=== PATIENT | female | born 1945 | race Caucasian/White ===

== ENCOUNTER 2019-05-13 13:43 | Inpatient (IN) | payer OTHER, MEDICAID ==
[~2019-05-13] VITALS: Ht 157.5 cm; Wt 78.9 kg
[2019-05-13 16:47] VITALS: BP_SYST 142
[2019-05-13] MEDS ORDERED: QUET50TA PO (17:32)
[2019-05-13] MEDS ORDERED: PRO40 PO (17:32)
[2019-05-13] MEDS ORDERED: IBUP-2018 PO (17:32)
[2019-05-13] MEDS ORDERED: LIP10 PO (17:32)
[2019-05-13] MEDS ORDERED: MUPI1OIN4 (17:32)
[2019-05-13] MEDS ORDERED: DONE10TA44 PO (17:32)
[2019-05-13] MEDS ORDERED: MOM PO (17:32)
[2019-05-13] MEDS ORDERED: GLUC1VIA IM (17:32)
[2019-05-13] MEDS ORDERED: ALBU2.5V7 INH ×2 (17:32)
[2019-05-13] MEDS ORDERED: ACET325T53 PO (17:32)
[2019-05-13] MEDS ORDERED: BALS60OI TP (17:32)
[2019-05-13] MEDS ORDERED: HUMALOG INSULIN SUBCUT (17:32)
[2019-05-13] MEDS ORDERED: LOVI30 SQ (17:32)
[2019-05-13] MEDS ORDERED: ASCO500T20 PO (17:32)
[2019-05-13] MEDS ORDERED: LORA-258 PO (17:32)
[2019-05-13] MEDS ORDERED: ZOLP5TAB2 PO (17:32)
[2019-05-13] MEDS ORDERED: BUDE0.5A INH (17:32)
[2019-05-13] MEDS ORDERED: MAGN400T10 PO (17:32)
[2019-05-13] MEDS ORDERED: OXYB5TAB11 PO (17:32)
[2019-05-13] MEDS ORDERED: LEVAQUIN IVPB (17:32)
[2019-05-13] MEDS ORDERED: THERAGRAN PO (17:32)
[2019-05-13] MEDS ORDERED: [UNRECOGNIZED DRUG - OTHER] IV (17:32)
[2019-05-13] MEDS ORDERED: GLIP5TAB13 PO (17:32)
[2019-05-13] MEDS ORDERED: MINE113C2 TP (17:32)
[2019-05-13] MEDS ORDERED: ANT30 PO (17:32)
[2019-05-13] MEDS ORDERED: [UNRECOGNIZED DRUG - OTHER] IV (17:32)
[2019-05-13] MEDS ORDERED: DOCU-144 PO (17:32)
[2019-05-13] MEDS ORDERED: ATROVENT NEB HHN (17:32)
[2019-05-13] MEDS ORDERED: LEVAQUIN 500 MG IVPB SCH (17:45)
[2019-05-13] MEDS ORDERED: INSULIN LISPRO SLIDING SCALE 100 UNITS/ML VIAL (humaLOG) SUBCUT PRN (17:45)
[2019-05-13] MEDS ORDERED: ALBUTEROL SULFATE 0.083% 2.5 MG/3 ML VIAL.NEB INH PRN (17:45)
[2019-05-13] MEDS ORDERED: MAG-AL HYDROX/SIMETH 30 ML UDC PO PRN (17:45)
[2019-05-13] MEDS ORDERED: MILK OF MAGNESIA 30 ML UDC PO PRN (17:45)
[2019-05-13 18:02] VITALS: BP_SYST 142
[2019-05-13] MEDS ORDERED: GLUCAGON,HUMAN RECOMBINANT 1 MG VIAL IM PRN (18:45)
[2019-05-13] MEDS ORDERED: IPRATROPIUM BROM 0.5 MG/2.5 ML VIAL.NEB (ATROVENT) INH PRN (18:45)
[2019-05-13] MEDS: ALBUTEROL SULFATE 0.083% 2.5 MG/3 ML VIAL.NEB INH SCH (19:00)
[2019-05-13] MEDS: BUDESONIDE 0.5 MG/2 ML AMPUL.NEB INH SCH (19:00)
[2019-05-13 20:00] VITALS: BP_SYST 147
[2019-05-13] MEDS: D5/0.45 NS 1,000 ML IV SCH (20:00)
[2019-05-13] MEDS ORDERED: [UNRECOGNIZED DRUG - OTHER] IV SCH (21:00)
[2019-05-13] MEDS ORDERED: D5 IV SCH (21:00)
[2019-05-13] MEDS: LEVOFLOXACIN 500 MG/D5W 100 ML IV SCH (21:24)
[2019-05-13] MEDS: ATORVASTATIN 10 MG TABLET PO SCH (22:11)
[2019-05-13] MEDS: QUEtiapine FUMARATE 25 MG TABLET PO SCH (22:11)
[2019-05-13] MEDS: OXYBUTYNIN CHLORIDE 5 MG TABLET PO SCH (22:11)
[2019-05-13] MEDS: DONEPEZIL HCL 5 MG TABLET (ARICEPT) PO SCH (22:11)
[2019-05-13] MEDS: MAGNESIUM OXIDE 400 MG TABLET PO SCH (22:11)
[2019-05-13] MEDS: MINERAL OIL/PETROLATUM,WHITE 113 GM CREAM.GM. TP SCH (22:13)
[2019-05-13] MEDS: MUPIROCIN 2% TOPICAL OINTMENT 22 GM TP SCH (22:14)
[2019-05-13] MEDS: LORazepam 1 MG TABLET PO PRN (23:39)
[2019-05-14 00:40] VITALS: BP_SYST 153
[2019-05-14] MEDS: ALBUTEROL SULFATE 0.083% 2.5 MG/3 ML VIAL.NEB INH SCH ×4 (01:00→19:00)
[2019-05-14] MEDS: LORazepam 1 MG TABLET PO PRN ×2 (05:22→22:00)
[2019-05-14] MEDS: D5/0.45 NS 1,000 ML IV SCH ×2 (05:23→20:43)
[2019-05-14 06:09] LABS: HEMATOCRIT 27.1 % (36-48); HEMOGLOBIN 9.1 g/dL (12.0-16.0); MEAN CORPUSCULAR HEMOGLOBIN 27 pg (27-31); MEAN CORPUSCULAR HGB CONC 34 % (32-36); MEAN CORPUSCULAR VOLUME 79 fL (79.0-98.0); PLATELET COUNT (AUTO) 129 K/uL (130-430); RED BLOOD CELL COUNT(AUTO) 3.41 MIL/uL (4.2-6.2); RED CELL DISTRIBUTION WIDTH 19.6 % (9.0-15.0); WHITE BLOOD COUNT (AUTO) 4.7 K/uL (4.8-10.8)
[2019-05-14 06:14] LABS: ANION GAP 3 (5-15); CALCIUM 9.2 mg/dL (8.4-11.0); CHLORIDE 98 mmol/L (98-107); CREATININE 0.79 mg/dL (0.55-1.30); GLUCOSE 95 mg/dL (70-99); PHOSPHORUS 2.7 mg/dL (2.7-4.5); POTASSIUM 4.5 mmol/L (3.5-5.1); SODIUM SERUM 128 mmol/L (136-145); UREA NITROGEN, BLOOD 20 mg/dL (8-21)
[2019-05-14] MEDS: PANTOPRAZOLE SODIUM 40 MG TAB PO SCH (06:46)
[2019-05-14] MEDS: BUDESONIDE 0.5 MG/2 ML AMPUL.NEB INH SCH ×2 (07:00→19:00)
[2019-05-14 07:49] LABS: BAND % (MANUAL) 4 % (0-6); BASOPHILS % (MANUAL) 0 % (0-2); EOSINOPHILS % (MANUAL) 0 % (0-7); LYMPHOCYTES % (MANUAL) 20 % (20-46); MONOCYTES % (MANUAL) 6 % (0-11)
[2019-05-14] MEDS: ASCORBIC ACID 500 MG TABLET PO SCH (08:10)
[2019-05-14] MEDS: MAGNESIUM OXIDE 400 MG TABLET PO SCH ×2 (08:10→20:45)
[2019-05-14] MEDS: DOCUSATE SODIUM 100 MG CAPSULE PO SCH (08:10)
[2019-05-14] MEDS: OXYBUTYNIN CHLORIDE 5 MG TABLET PO SCH ×2 (08:10→20:45)
[2019-05-14] MEDS: MULTIVITS,CA,MINERALS/IRON/FA 1 TABLET PO SCH (08:11)
[2019-05-14] MEDS: MINERAL OIL/PETROLATUM,WHITE 113 GM CREAM.GM. TP SCH ×2 (08:11→20:44)
[2019-05-14] MEDS: MUPIROCIN 2% TOPICAL OINTMENT 22 GM TP SCH ×2 (08:11→20:45)
[2019-05-14] MEDS: BALSAM PERU/CASTOR OIL 60 GM OINT...G. TP SCH (08:11)
[2019-05-14] MEDS: ENOXAPARIN SODIUM 30 MG/0.3 ML SYRINGE SQ SCH (08:18)
[2019-05-14] MEDS: DEXTROSE 50% JECT 50 ML DISP.SYRIN IVP PRN ×3 (11:40→17:18)
[2019-05-14 12:00] VITALS: BP_SYST 118
[2019-05-14 17:04] VITALS: BP_SYST 145
[2019-05-14] MEDS: LEVOFLOXACIN 500 MG/D5W 100 ML IV SCH (19:31)
[2019-05-14 20:00] VITALS: BP_SYST 155
[2019-05-14] MEDS: CALCIUM CARBONATE/VITAMIN D3 1 TAB TABLET PO SCH (20:45)
[2019-05-14] MEDS: QUEtiapine FUMARATE 25 MG TABLET PO SCH (20:45)
[2019-05-14] MEDS: ATORVASTATIN 10 MG TABLET PO SCH (20:45)
[2019-05-14] MEDS: DONEPEZIL HCL 5 MG TABLET (ARICEPT) PO SCH (20:45)
[2019-05-15] MEDS: ACETAMINOPHEN 325 MG TABLET PO PRN ×2 (00:29→15:04)
[2019-05-15] MEDS: ZOLPIDEM TARTRATE 5 MG TABLET PO PRN (00:29)
[2019-05-15] MEDS: ALBUTEROL SULFATE 0.083% 2.5 MG/3 ML VIAL.NEB INH SCH ×4 (01:00→19:00)
[2019-05-15 02:29] VITALS: BP_SYST 122
[2019-05-15] MEDS: D5/0.45 NS 1,000 ML IV SCH ×2 (06:40→18:12)
[2019-05-15] MEDS: PANTOPRAZOLE SODIUM 40 MG TAB PO SCH (06:40)
[2019-05-15] MEDS: BUDESONIDE 0.5 MG/2 ML AMPUL.NEB INH SCH ×2 (07:00→19:00)
[2019-05-15 07:36] LABS: TOTAL IRON BIND. CAPACITY 121 ug/dL (250-450)
[2019-05-15 08:00] VITALS: BP_SYST 113
[2019-05-15 08:10] LABS: IMMUNOGLOBULIN G, SERUM 694 mg/dL (700-1600); IMMUNOGLOBULIN M, SERUM 30 mg/dL (26-217)
[2019-05-15] MEDS ORDERED: BALSAM PERU/CASTOR OIL 60 GM OINT...G. TP SCH (09:00)
[2019-05-15] MEDS: MAGNESIUM OXIDE 400 MG TABLET PO SCH ×2 (09:24→21:07)
[2019-05-15] MEDS: MULTIVITS,CA,MINERALS/IRON/FA 1 TABLET PO SCH (09:24)
[2019-05-15] MEDS: CALCIUM CARBONATE/VITAMIN D3 1 TAB TABLET PO SCH ×3 (09:24→21:07)
[2019-05-15] MEDS: ENOXAPARIN SODIUM 30 MG/0.3 ML SYRINGE SQ SCH (09:24)
[2019-05-15] MEDS: OXYBUTYNIN CHLORIDE 5 MG TABLET PO SCH ×2 (09:24→21:07)
[2019-05-15] MEDS: IBUPROFEN 400 MG TABLET PO PRN ×2 (09:24→18:54)
[2019-05-15] MEDS: DOCUSATE SODIUM 100 MG CAPSULE PO SCH (09:24)
[2019-05-15] MEDS: ASCORBIC ACID 500 MG TABLET PO SCH (09:24)
[2019-05-15] MEDS: MUPIROCIN 2% TOPICAL OINTMENT 22 GM TP SCH ×2 (09:33→21:08)
[2019-05-15] MEDS: MINERAL OIL/PETROLATUM,WHITE 113 GM CREAM.GM. TP SCH ×2 (09:33→21:08)
[2019-05-15] MEDS: BALSAM PERU/CASTOR OIL 60 GM OINT...G. TP SCH (09:34)
[2019-05-15 12:30] VITALS: BP_SYST 118
[2019-05-15 16:29] VITALS: BP_SYST 110
[2019-05-15] MEDS: LEVOFLOXACIN 500 MG/D5W 100 ML IV SCH (18:08)
[2019-05-15 19:55] VITALS: BP_SYST 130
[2019-05-15] MEDS: ATORVASTATIN 10 MG TABLET PO SCH (21:07)
[2019-05-15] MEDS: DONEPEZIL HCL 5 MG TABLET (ARICEPT) PO SCH (21:07)
[2019-05-15] MEDS: QUEtiapine FUMARATE 25 MG TABLET PO SCH (21:07)
[2019-05-16] VITALS (7 sets, daily range): BP systolic 116–149
[2019-05-16] MEDS: ALBUTEROL SULFATE 0.083% 2.5 MG/3 ML VIAL.NEB INH SCH ×4 (00:41→19:00)
[2019-05-16] MEDS: PANTOPRAZOLE SODIUM 40 MG TAB PO SCH (06:12)
[2019-05-16] MEDS: ACETAMINOPHEN 325 MG TABLET PO PRN ×2 (06:12→22:31)
[2019-05-16] MEDS: BUDESONIDE 0.5 MG/2 ML AMPUL.NEB INH SCH ×2 (07:51→19:00)
[2019-05-16 08:26] LABS: BASOPHILS % (AUTO) 0.7 % (0.0-2.0); EOSINOPHILS # (AUTO) 0.1 K/uL (0.0-0.4); EOSINOPHILS % (AUTO) 1.3 % (0.0-4.0); HEMATOCRIT 27.8 % (36-48); HEMOGLOBIN 9.4 g/dL (12.0-16.0); LYMPHOCYTES # (AUTO) 1.2 K/uL (1.0-5.5); LYMPHOCYTES % (AUTO) 23.8 % (20.5-51.5); MEAN CORPUSCULAR HEMOGLOBIN 27 pg (27-31); MEAN CORPUSCULAR HGB CONC 34 % (32-36); MEAN CORPUSCULAR VOLUME 79 fL (79.0-98.0); MONOCYTES # (AUTO) 0.5 K/uL (0.0-1.0); MONOCYTES % (AUTO) 9.1 % (1.7-9.3); NEUTROPHILS # (AUTO) 3.3 K/uL (1.8-7.7); NEUTROPHILS % (AUTO) 65.1 % (40.0-70.0); PLATELET COUNT (AUTO) 144 K/uL (130-430); RED BLOOD CELL COUNT(AUTO) 3.54 MIL/uL (4.2-6.2); RED CELL DISTRIBUTION WIDTH 20.6 % (9.0-15.0); WHITE BLOOD COUNT (AUTO) 5.1 K/uL (4.8-10.8)
[2019-05-16 08:33] LABS: ANION GAP 9 (5-15); CALCIUM 8.3 mg/dL (8.4-11.0); CHLORIDE 97 mmol/L (98-107); CREATININE 0.72 mg/dL (0.55-1.30); GLUCOSE 125 mg/dL (70-99); POTASSIUM 4.5 mmol/L (3.5-5.1); SODIUM SERUM 129 mmol/L (136-145); UREA NITROGEN, BLOOD 19 mg/dL (8-21)
[2019-05-16] MEDS: OXYBUTYNIN CHLORIDE 5 MG TABLET PO SCH ×2 (09:28→22:14)
[2019-05-16] MEDS: DOCUSATE SODIUM 100 MG CAPSULE PO SCH (09:28)
[2019-05-16] MEDS: ASCORBIC ACID 500 MG TABLET PO SCH (09:28)
[2019-05-16] MEDS: MULTIVITS,CA,MINERALS/IRON/FA 1 TABLET PO SCH (09:28)
[2019-05-16] MEDS: MAGNESIUM OXIDE 400 MG TABLET PO SCH ×2 (09:28→22:15)
[2019-05-16] MEDS: CALCIUM CARBONATE/VITAMIN D3 1 TAB TABLET PO SCH ×3 (09:28→22:15)
[2019-05-16] MEDS: LORazepam 1 MG TABLET PO PRN ×3 (09:29→18:43)
[2019-05-16] MEDS: MUPIROCIN 2% TOPICAL OINTMENT 22 GM TP SCH ×2 (09:29→22:16)
[2019-05-16] MEDS: ENOXAPARIN SODIUM 30 MG/0.3 ML SYRINGE SQ SCH (09:29)
[2019-05-16] MEDS: D5/0.45 NS 1,000 ML IV SCH ×2 (09:30→22:17)
[2019-05-16] MEDS: BALSAM PERU/CASTOR OIL 60 GM OINT...G. TP SCH (09:30)
[2019-05-16] MEDS: MINERAL OIL/PETROLATUM,WHITE 113 GM CREAM.GM. TP SCH ×2 (09:30→22:17)
[2019-05-16] MEDS: INSULIN REGULAR, HUMAN 100 UNITS/ML, 10 ML VIAL (humuLIN R) SUBCUT PRN (11:29)
[2019-05-16] MEDS: IBUPROFEN 400 MG TABLET PO PRN (12:58)
[2019-05-16] MEDS: LEVOFLOXACIN 500 MG/D5W 100 ML IV SCH (18:11)
[2019-05-16 19:07] LABS: TPROTEIN U,24HR 475.2 mg/24HR (0-130)
[2019-05-16] MEDS: DONEPEZIL HCL 5 MG TABLET (ARICEPT) PO SCH (22:14)
[2019-05-16] MEDS: QUEtiapine FUMARATE 25 MG TABLET PO SCH (22:15)
[2019-05-16] MEDS: ATORVASTATIN 10 MG TABLET PO SCH (22:15)
[2019-05-17] MEDS: ALBUTEROL SULFATE 0.083% 2.5 MG/3 ML VIAL.NEB INH SCH ×4 (00:40→19:00)
[2019-05-17] MEDS: PANTOPRAZOLE SODIUM 40 MG TAB PO SCH (05:18)
[2019-05-17] MEDS: LORazepam 1 MG TABLET PO PRN ×4 (05:19→20:30)
[2019-05-17 06:50] LABS: BASOPHILS # (AUTO) 0.1 K/uL (0.0-0.2); BASOPHILS % (AUTO) 1.2 % (0.0-2.0); EOSINOPHILS # (AUTO) 0.1 K/uL (0.0-0.4); EOSINOPHILS % (AUTO) 1.2 % (0.0-4.0); HEMATOCRIT 26.7 % (36-48); LYMPHOCYTES % (AUTO) 19.2 % (20.5-51.5); MEAN CORPUSCULAR HEMOGLOBIN 27 pg (27-31); MEAN CORPUSCULAR HGB CONC 34 % (32-36); MEAN CORPUSCULAR VOLUME 79 fL (79.0-98.0); MONOCYTES # (AUTO) 0.5 K/uL (0.0-1.0); NEUTROPHILS # (AUTO) 3.6 K/uL (1.8-7.7); NEUTROPHILS % (AUTO) 69.4 % (40.0-70.0); PLATELET COUNT (AUTO) 152 K/uL (130-430); RED BLOOD CELL COUNT(AUTO) 3.37 MIL/uL (4.2-6.2); RED CELL DISTRIBUTION WIDTH 19.9 % (9.0-15.0); WHITE BLOOD COUNT (AUTO) 5.2 K/uL (4.8-10.8)
[2019-05-17] MEDS: BUDESONIDE 0.5 MG/2 ML AMPUL.NEB INH SCH ×2 (07:00→19:00)
[2019-05-17 07:58] VITALS: BP_SYST 123
[2019-05-17 08:08] LABS: ANION GAP 6 (5-15); CALCIUM 7.8 mg/dL (8.4-11.0); CHLORIDE 97 mmol/L (98-107); CREATININE 0.65 mg/dL (0.55-1.30); GLUCOSE 96 mg/dL (70-99); POTASSIUM 4.5 mmol/L (3.5-5.1); SODIUM SERUM 129 mmol/L (136-145); UREA NITROGEN, BLOOD 13 mg/dL (8-21)
[2019-05-17] MEDS: BALSAM PERU/CASTOR OIL 60 GM OINT...G. TP SCH (08:47)
[2019-05-17] MEDS: CALCIUM CARBONATE/VITAMIN D3 1 TAB TABLET PO SCH ×3 (08:48→20:28)
[2019-05-17] MEDS: MUPIROCIN 2% TOPICAL OINTMENT 22 GM TP SCH ×2 (08:48→20:29)
[2019-05-17] MEDS: MAGNESIUM OXIDE 400 MG TABLET PO SCH ×2 (08:48→20:28)
[2019-05-17] MEDS: ASCORBIC ACID 500 MG TABLET PO SCH (08:48)
[2019-05-17] MEDS: OXYBUTYNIN CHLORIDE 5 MG TABLET PO SCH ×2 (08:48→20:28)
[2019-05-17] MEDS: DOCUSATE SODIUM 100 MG CAPSULE PO SCH (08:48)
[2019-05-17] MEDS: MULTIVITS,CA,MINERALS/IRON/FA 1 TABLET PO SCH (08:48)
[2019-05-17] MEDS: MINERAL OIL/PETROLATUM,WHITE 113 GM CREAM.GM. TP SCH ×2 (08:49→20:29)
[2019-05-17] MEDS: ENOXAPARIN SODIUM 30 MG/0.3 ML SYRINGE SQ SCH (08:56)
[2019-05-17 12:53] VITALS: BP_SYST 141
[2019-05-17] MEDS: IBUPROFEN 400 MG TABLET PO PRN ×2 (15:15→20:31)
[2019-05-17 17:13] VITALS: BP_SYST 142
[2019-05-17 19:00] VITALS: BP_SYST 154
[2019-05-17 20:00] VITALS: BP_SYST 154
[2019-05-17] MEDS: DONEPEZIL HCL 5 MG TABLET (ARICEPT) PO SCH (20:28)
[2019-05-17] MEDS: ATORVASTATIN 10 MG TABLET PO SCH (20:28)
[2019-05-17] MEDS: QUEtiapine FUMARATE 25 MG TABLET PO SCH (20:29)
[2019-05-17] MEDS: ZOLPIDEM TARTRATE 5 MG TABLET PO PRN (20:30)
[2019-05-17] MEDS: INSULIN REGULAR, HUMAN 100 UNITS/ML, 10 ML VIAL (humuLIN R) SUBCUT PRN (20:38)
[2019-05-18] MEDS: LORazepam 1 MG TABLET PO PRN ×3 (00:28→18:46)
[2019-05-18] MEDS: IBUPROFEN 400 MG TABLET PO PRN ×2 (00:29→06:10)
[2019-05-18] MEDS: ALBUTEROL SULFATE 0.083% 2.5 MG/3 ML VIAL.NEB INH SCH ×4 (01:00→19:00)
[2019-05-18] MEDS ORDERED: HYDROcodone/ACETAMIN 5-325 MG TAB (NORCO/ VICODIN) PO ONE (02:30)
[2019-05-18 02:52] VITALS: BP_SYST 123
[2019-05-18] MEDS: PANTOPRAZOLE SODIUM 40 MG TAB PO SCH (06:09)
[2019-05-18] MEDS: BUDESONIDE 0.5 MG/2 ML AMPUL.NEB INH SCH ×2 (07:00→19:00)
[2019-05-18 07:28] LABS: CHLORIDE 96 mmol/L (98-107); CREATININE 0.69 mg/dL (0.55-1.30); GLUCOSE 99 mg/dL (70-99); POTASSIUM 4.8 mmol/L (3.5-5.1); SODIUM SERUM 126 mmol/L (136-145); UREA NITROGEN, BLOOD 21 mg/dL (8-21)
[2019-05-18 07:30] LABS: ANION GAP < 3 (5-15)
[2019-05-18 07:39] LABS: BASOPHILS % (AUTO) 0.7 % (0.0-2.0); EOSINOPHILS # (AUTO) 0.1 K/uL (0.0-0.4); EOSINOPHILS % (AUTO) 1.4 % (0.0-4.0); HEMATOCRIT 25.8 % (36-48); HEMOGLOBIN 8.7 g/dL (12.0-16.0); LYMPHOCYTES # (AUTO) 1.3 K/uL (1.0-5.5); LYMPHOCYTES % (AUTO) 26.9 % (20.5-51.5); MEAN CORPUSCULAR HEMOGLOBIN 27 pg (27-31); MEAN CORPUSCULAR HGB CONC 34 % (32-36); MEAN CORPUSCULAR VOLUME 79 fL (79.0-98.0); MONOCYTES # (AUTO) 0.5 K/uL (0.0-1.0); MONOCYTES % (AUTO) 10.6 % (1.7-9.3); NEUTROPHILS % (AUTO) 60.4 % (40.0-70.0); PLATELET COUNT (AUTO) 174 K/uL (130-430); RED BLOOD CELL COUNT(AUTO) 3.26 MIL/uL (4.2-6.2); RED CELL DISTRIBUTION WIDTH 19.8 % (9.0-15.0)
[2019-05-18 07:40] LABS: CALCIUM 8.3 mg/dL (8.4-11.0)
[2019-05-18 08:00] VITALS: BP_SYST 118
[2019-05-18] MEDS: MUPIROCIN 2% TOPICAL OINTMENT 22 GM TP SCH (12:03)
[2019-05-18] MEDS: MINERAL OIL/PETROLATUM,WHITE 113 GM CREAM.GM. TP SCH ×2 (12:04→21:41)
[2019-05-18] MEDS: BALSAM PERU/CASTOR OIL 60 GM OINT...G. TP SCH (12:04)
[2019-05-18] MEDS: DOCUSATE SODIUM 100 MG CAPSULE PO SCH (12:05)
[2019-05-18] MEDS: OXYBUTYNIN CHLORIDE 5 MG TABLET PO SCH ×2 (12:05→20:37)
[2019-05-18] MEDS: ASCORBIC ACID 500 MG TABLET PO SCH (12:05)
[2019-05-18] MEDS: CALCIUM CARBONATE/VITAMIN D3 1 TAB TABLET PO SCH ×3 (12:05→20:37)
[2019-05-18] MEDS: MULTIVITS,CA,MINERALS/IRON/FA 1 TABLET PO SCH (12:05)
[2019-05-18] MEDS: MAGNESIUM OXIDE 400 MG TABLET PO SCH ×2 (12:05→20:37)
[2019-05-18] MEDS: ENOXAPARIN SODIUM 30 MG/0.3 ML SYRINGE SQ SCH (12:08)
[2019-05-18 12:15] VITALS: BP_SYST 107
[2019-05-18 16:56] VITALS: BP_SYST 127
[2019-05-18 20:00] VITALS: BP_SYST 130
[2019-05-18] MEDS: ATORVASTATIN 10 MG TABLET PO SCH (20:37)
[2019-05-18] MEDS: QUEtiapine FUMARATE 25 MG TABLET PO SCH (20:37)
[2019-05-18] MEDS: DONEPEZIL HCL 5 MG TABLET (ARICEPT) PO SCH (20:37)
[2019-05-19] MEDS: ALBUTEROL SULFATE 0.083% 2.5 MG/3 ML VIAL.NEB INH SCH ×4 (00:27→19:00)
[2019-05-19] MEDS: ZOLPIDEM TARTRATE 5 MG TABLET PO PRN (01:03)
[2019-05-19] MEDS: LORazepam 1 MG TABLET PO PRN ×4 (01:03→21:08)
[2019-05-19 02:57] VITALS: BP_SYST 123
[2019-05-19 05:36] LABS: A/G RATIO 1.1 (0.7-1.7); ALBUMIN 2.6 g/dL (2.9-4.4); ALPHA-1-GLOBULIN 0.3 g/dL (0.0-0.4); ALPHA-2-GLOBULIN 0.7 g/dL (0.4-1.0); BETA GLOBULIN 0.7 g/dL (0.7-1.3); GAMMA GLOBULIN 0.6 g/dL (0.4-1.8); GLOBULIN, TOTAL 2.4 g/dL (2.2-3.9); M-SPIKE Not Observed g/dL (Not Observed)
[2019-05-19] MEDS: PANTOPRAZOLE SODIUM 40 MG TAB PO SCH (06:05)
[2019-05-19 06:06] LABS: FOLATE (FOLIC ACID) 13.9 ng/mL (>3.0)
[2019-05-19] MEDS: INSULIN REGULAR, HUMAN 100 UNITS/ML, 10 ML VIAL (humuLIN R) SUBCUT PRN (06:06)
[2019-05-19] MEDS: BUDESONIDE 0.5 MG/2 ML AMPUL.NEB INH SCH ×2 (07:00→19:00)
[2019-05-19 08:07] VITALS: BP_SYST 127
[2019-05-19] MEDS: MULTIVITS,CA,MINERALS/IRON/FA 1 TABLET PO SCH (08:30)
[2019-05-19] MEDS: DOCUSATE SODIUM 100 MG CAPSULE PO SCH (08:30)
[2019-05-19] MEDS: MINERAL OIL/PETROLATUM,WHITE 113 GM CREAM.GM. TP SCH ×2 (08:31→20:18)
[2019-05-19] MEDS: CALCIUM CARBONATE/VITAMIN D3 1 TAB TABLET PO SCH ×3 (08:31→20:17)
[2019-05-19] MEDS: OXYBUTYNIN CHLORIDE 5 MG TABLET PO SCH ×2 (08:31→20:17)
[2019-05-19] MEDS: BALSAM PERU/CASTOR OIL 60 GM OINT...G. TP SCH (08:31)
[2019-05-19] MEDS: ASCORBIC ACID 500 MG TABLET PO SCH (08:31)
[2019-05-19] MEDS: MAGNESIUM OXIDE 400 MG TABLET PO SCH ×2 (08:31→20:17)
[2019-05-19] MEDS: ENOXAPARIN SODIUM 30 MG/0.3 ML SYRINGE SQ SCH (08:32)
[2019-05-19 11:30] VITALS: BP_SYST 156
[2019-05-19] MEDS: ACETAMINOPHEN 325 MG TABLET PO PRN (13:18)
[2019-05-19 15:50] VITALS: BP_SYST 156
[2019-05-19 18:30] VITALS: BP_SYST 156
[2019-05-19 20:00] VITALS: BP_SYST 149
[2019-05-19] MEDS: ATORVASTATIN 10 MG TABLET PO SCH (20:17)
[2019-05-19] MEDS: DONEPEZIL HCL 5 MG TABLET (ARICEPT) PO SCH (20:17)
[2019-05-19] MEDS: QUEtiapine FUMARATE 25 MG TABLET PO SCH (20:17)
[2019-05-20] MEDS: ZOLPIDEM TARTRATE 5 MG TABLET PO PRN (00:02)
[2019-05-20 00:40] VITALS: BP_SYST 120
[2019-05-20] MEDS: ALBUTEROL SULFATE 0.083% 2.5 MG/3 ML VIAL.NEB INH SCH ×4 (01:00→19:00)
[2019-05-20] MEDS: LORazepam 1 MG TABLET PO PRN ×3 (03:08→21:23)
[2019-05-20] MEDS: PANTOPRAZOLE SODIUM 40 MG TAB PO SCH (06:03)
[2019-05-20 06:37] LABS: BASOPHILS # (AUTO) 0.1 K/uL (0.0-0.2); BASOPHILS % (AUTO) 0.9 % (0.0-2.0); EOSINOPHILS # (AUTO) 0.1 K/uL (0.0-0.4); EOSINOPHILS % (AUTO) 1.2 % (0.0-4.0); HEMATOCRIT 26.1 % (36-48); HEMOGLOBIN 8.9 g/dL (12.0-16.0); LYMPHOCYTES # (AUTO) 1.3 K/uL (1.0-5.5); LYMPHOCYTES % (AUTO) 22.7 % (20.5-51.5); MEAN CORPUSCULAR HEMOGLOBIN 27 pg (27-31); MEAN CORPUSCULAR HGB CONC 34 % (32-36); MEAN CORPUSCULAR VOLUME 79 fL (79.0-98.0); MONOCYTES # (AUTO) 0.6 K/uL (0.0-1.0); MONOCYTES % (AUTO) 10.5 % (1.7-9.3); NEUTROPHILS # (AUTO) 3.8 K/uL (1.8-7.7); NEUTROPHILS % (AUTO) 64.7 % (40.0-70.0); PLATELET COUNT (AUTO) 211 K/uL (130-430); RED CELL DISTRIBUTION WIDTH 20.6 % (9.0-15.0); WHITE BLOOD COUNT (AUTO) 5.8 K/uL (4.8-10.8)
[2019-05-20 06:54] LABS: ANION GAP 7 (5-15); CALCIUM 8.7 mg/dL (8.4-11.0); CHLORIDE 100 mmol/L (98-107); CREATININE 0.45 mg/dL (0.55-1.30); GLUCOSE 104 mg/dL (70-99); POTASSIUM 5.2 mmol/L (3.5-5.1); SODIUM SERUM 133 mmol/L (136-145); UREA NITROGEN, BLOOD 18 mg/dL (8-21)
[2019-05-20] MEDS: BUDESONIDE 0.5 MG/2 ML AMPUL.NEB INH SCH ×2 (07:00→19:00)
[2019-05-20 08:00] VITALS: BP_SYST 121
[2019-05-20] MEDS: CALCIUM CARBONATE/VITAMIN D3 1 TAB TABLET PO SCH ×3 (09:54→21:13)
[2019-05-20] MEDS: MULTIVITS,CA,MINERALS/IRON/FA 1 TABLET PO SCH (09:55)
[2019-05-20] MEDS: MAGNESIUM OXIDE 400 MG TABLET PO SCH ×2 (09:55→21:13)
[2019-05-20] MEDS: DOCUSATE SODIUM 100 MG CAPSULE PO SCH (09:55)
[2019-05-20] MEDS: IBUPROFEN 400 MG TABLET PO PRN (09:55)
[2019-05-20] MEDS: ASCORBIC ACID 500 MG TABLET PO SCH (09:55)
[2019-05-20] MEDS: ENOXAPARIN SODIUM 30 MG/0.3 ML SYRINGE SQ SCH (09:57)
[2019-05-20] MEDS: OXYBUTYNIN CHLORIDE 5 MG TABLET PO SCH ×2 (10:19→21:13)
[2019-05-20] MEDS: MINERAL OIL/PETROLATUM,WHITE 113 GM CREAM.GM. TP SCH ×2 (10:20→21:14)
[2019-05-20] MEDS: BALSAM PERU/CASTOR OIL 60 GM OINT...G. TP SCH (10:20)
[2019-05-20 12:30] VITALS: BP_SYST 150
[2019-05-20 16:32] VITALS: BP_SYST 146
[2019-05-20] MEDS: QUEtiapine FUMARATE 25 MG TABLET PO SCH (21:12)
[2019-05-20] MEDS: ATORVASTATIN 10 MG TABLET PO SCH (21:13)
[2019-05-20] MEDS: DONEPEZIL HCL 5 MG TABLET (ARICEPT) PO SCH (21:13)
[2019-05-20 21:40] VITALS: BP_SYST 139
[2019-05-21] MEDS: IBUPROFEN 400 MG TABLET PO PRN ×2 (00:22→09:22)
[2019-05-21] MEDS: ZOLPIDEM TARTRATE 5 MG TABLET PO PRN (00:23)
[2019-05-21] MEDS: ALBUTEROL SULFATE 0.083% 2.5 MG/3 ML VIAL.NEB INH SCH ×4 (01:00→19:00)
[2019-05-21 02:45] VITALS: BP_SYST 130
[2019-05-21] MEDS: PANTOPRAZOLE SODIUM 40 MG TAB PO SCH (06:35)
[2019-05-21] MEDS: BUDESONIDE 0.5 MG/2 ML AMPUL.NEB INH SCH ×2 (07:00→19:00)
[2019-05-21 08:00] VITALS: BP_SYST 120
[2019-05-21] MEDS: ENOXAPARIN SODIUM 30 MG/0.3 ML SYRINGE SQ SCH (09:20)
[2019-05-21] MEDS: LORazepam 1 MG TABLET PO PRN ×2 (09:21→21:51)
[2019-05-21] MEDS: MAGNESIUM OXIDE 400 MG TABLET PO SCH ×2 (09:21→21:25)
[2019-05-21] MEDS: DOCUSATE SODIUM 100 MG CAPSULE PO SCH (09:22)
[2019-05-21] MEDS: OXYBUTYNIN CHLORIDE 5 MG TABLET PO SCH ×2 (09:22→21:26)
[2019-05-21] MEDS: ASCORBIC ACID 500 MG TABLET PO SCH (09:22)
[2019-05-21] MEDS: MULTIVITS,CA,MINERALS/IRON/FA 1 TABLET PO SCH (09:22)
[2019-05-21] MEDS: CALCIUM CARBONATE/VITAMIN D3 1 TAB TABLET PO SCH ×3 (09:24→21:26)
[2019-05-21 12:48] VITALS: BP_SYST 110
[2019-05-21 16:54] VITALS: BP_SYST 106
[2019-05-21] MEDS: BALSAM PERU/CASTOR OIL 60 GM OINT...G. TP SCH (18:27)
[2019-05-21] MEDS: MINERAL OIL/PETROLATUM,WHITE 113 GM CREAM.GM. TP SCH ×2 (18:27→21:26)
[2019-05-21 21:19] VITALS: BP_SYST 146
[2019-05-21] MEDS: QUEtiapine FUMARATE 25 MG TABLET PO SCH (21:25)
[2019-05-21] MEDS: DONEPEZIL HCL 5 MG TABLET (ARICEPT) PO SCH (21:26)
[2019-05-21] MEDS: ATORVASTATIN 10 MG TABLET PO SCH (21:26)
[2019-05-22 00:36] VITALS: BP_SYST 113
[2019-05-22] MEDS: ALBUTEROL SULFATE 0.083% 2.5 MG/3 ML VIAL.NEB INH SCH ×3 (00:57→13:00)
[2019-05-22] MEDS: ZOLPIDEM TARTRATE 5 MG TABLET PO PRN (01:32)
[2019-05-22] MEDS: IBUPROFEN 400 MG TABLET PO PRN (01:32)
[2019-05-22] MEDS: LORazepam 1 MG TABLET PO PRN (03:51)
[2019-05-22] MEDS: PANTOPRAZOLE SODIUM 40 MG TAB PO SCH (06:18)
[2019-05-22] MEDS: BUDESONIDE 0.5 MG/2 ML AMPUL.NEB INH SCH (07:00)
[2019-05-22 08:00] VITALS: BP_SYST 127
[2019-05-22] MEDS: ASCORBIC ACID 500 MG TABLET PO SCH (09:50)
[2019-05-22] MEDS: OXYBUTYNIN CHLORIDE 5 MG TABLET PO SCH (09:50)
[2019-05-22] MEDS: MAGNESIUM OXIDE 400 MG TABLET PO SCH (09:50)
[2019-05-22] MEDS: MULTIVITS,CA,MINERALS/IRON/FA 1 TABLET PO SCH (09:50)
[2019-05-22] MEDS: CALCIUM CARBONATE/VITAMIN D3 1 TAB TABLET PO SCH (09:50)
[2019-05-22] MEDS: DOCUSATE SODIUM 100 MG CAPSULE PO SCH (09:50)
[2019-05-22] MEDS: ENOXAPARIN SODIUM 30 MG/0.3 ML SYRINGE SQ SCH (09:52)
[2019-05-22] MEDS: BALSAM PERU/CASTOR OIL 60 GM OINT...G. TP SCH (09:57)
[2019-05-22] MEDS: MINERAL OIL/PETROLATUM,WHITE 113 GM CREAM.GM. TP SCH (09:58)
[2019-05-22 12:00] VITALS: BP_SYST 129
[2019-05-22 13:12] VITALS: BP_SYST 127
== END 2019-05-22 14:50 | DRG 542 ==
LOC: SMU 16:44
PROVIDERS: ADMIT Family Medicine; ATTEND Family Medicine
PROC: 05HY33Z Insertion of Infusion Device into Upper Vein, Percutaneous Approach (ICD-10-PCS; principal; 2019-05-17)
PROC: B54MZZA Ultrasonography of Right Upper Extremity Veins, Guidance (ICD-10-PCS; 2019-05-17)
DX: M84.451A Pathological fracture, right femur, initial encounter for fracture (principal); L89.154 Pressure ulcer of sacral region, stage 4; L03.115 Cellulitis of right lower limb; M84.454A Pathological fracture, pelvis, initial encounter for fracture; M84.459A Pathological fracture, hip, unspecified, initial encounter for fracture; E83.52 Hypercalcemia; E11.9 Type 2 diabetes mellitus without complications; I10 Essential (primary) hypertension; Z53.29 Procedure and treatment not carried out because of patient's decision for other reasons; D64.9 Anemia, unspecified; M19.90 Unspecified osteoarthritis, unspecified site; E78.5 Hyperlipidemia, unspecified; F03.90 Unspecified dementia, unspecified severity, without behavioral disturbance, psychotic disturbance, mood disturbance, and anxiety; J44.9 Chronic obstructive pulmonary disease, unspecified; I25.10 Atherosclerotic heart disease of native coronary artery without angina pectoris; N19 Unspecified kidney failure; Z79.01 Long term (current) use of anticoagulants; Z86.718 Personal history of other venous thrombosis and embolism; Z87.891 Personal history of nicotine dependence
CPT/HCPCS: 36415; 71045; 73060-TC; 73502; 80048; 82232; 82272; 82306; 82607; 82728; 82746; 82784; 82962; 83540-TC; 83550-TC; 83735-TC; 83970; 84100-TC; 84155; 84156; 84165; 85007; 85025; 85027; 85044-TC; 87081; 94640; 94760; C1751; J1610; J1650; J1815; J1956; J7613; J7626